=== PATIENT | male | born 1995 | race Caucasian/White ===

== ENCOUNTER 2020-02-15 21:41 | Emergency (ER) | payer SELFPAY ==
[~2020-02-15] VITALS: Ht 165.1 cm; Wt 87.4 kg
[2020-02-15 21:43] VITALS: BP 155/91
[2020-02-15] MEDS ORDERED: HYDR-83 PO (21:52)
[2020-02-15] MEDS ORDERED: PENI500T PO (21:52)
--- NOTE | 2020-02-15 21:52 | ED EENT ---
History of Present Illness General Stated Complaint: TOOTH ACHE Source: patient Exam Limitations: no limitations History of Present Illness Date Seen by Provider: February 15, 2020 Time Seen by Provider: 21:38 Initial Comments The patient is a 24-year-old male presents for evaluation of left upper and lower wisdom tooth pain. He states it started this morning and he spoke with his dentist and has an apartment ointment with them tomorrow morning. He is tearful and states that he is having difficult sleeping. He denies having any pain at all yesterday. He is alert and oriented 4, calm, and appears to be in no distress this time. He denies any other complaints and states that he has no drug allergies. Timing/Duration: abrupt, this morning Severity: moderate Prearrival Treatment: no prearrival treatment Associated Symptoms: tooth pain Allergies and Home Medications Patient Home Medication List Home Medication List Reviewed: Yes Review of Systems Review of Systems Constitutional: no symptoms reported Eyes: No Symptoms Reported Ears: No Symptoms Reported Nose: no symptoms reported Mouth: see HPI Throat: no symptoms reported Respiratory: no symptoms reported Cardiovascular: no symptoms reported Gastrointestinal: no symptoms reported Musculoskeletal: no symptoms reported Skin: no symptoms reported Neurological: No Symptoms Reported Hematologic/Lymphatic: No Symptoms Reported Immunological/Allergic: no symptoms reported All Other Systems Reviewed Negative Unless Noted: Yes Past [id number] Hx Past Med/Social Hx: Reviewed Nursing Past Med/Soc Hx Patient Social History Recent Foreign Travel: No Contact w/Someone Who Travel: No Physical Exam Height, Weight, BMI Height: '" Weight: lbs. oz. kg; BMI Method: General Appearance: WD/WN, no apparent distress Eyes: bilateral eye normal inspection, bilateral eye PERRL, bilateral eye EOMI Nose: normal inspection Mouth/Throat: normal mouth inspection, other (left upper and lower posterior molar/with some teeth with some mild gingival inflammatory changes, no dental abscess seen, no bleeding, no purulence, no trismus) Neck: non-tender, full range of motion, supple Cardiovascular: regular rate, rhythm, no edema, no JVD Respiratory: chest non-tender, normal breath sounds, no respiratory distress Gastrointestinal: normal bowel sounds, non tender, soft, no pulsatile mass Neurologic/Psychiatric: no motor/sensory deficits, alert, normal mood/affect, oriented x 3 Skin: normal color, warm/dry Progress/Results/Core Measures Progress Progress Note : Progress Note @2149 - Patient advised to see his dentist in the morning as previous arranged. He'll be prescribed pain medication and antibiotic. Advised patient to return to the emergency department for new or worsening symptoms. He expresses verbal understanding and agreement with the plan and is stable for discharge. Workup fails to reveal any emergent pathology at this time. Departure Impression Primary Impression: Pain, dental Disposition: HOME, SELF-CARE Condition: Stable Departure-Patient Inst. Decision time for Depature: 21:51 Referrals: POOJA BLACKBURN MD (PCP/Family) Primary Care Physician Patient Instructions: Acute Pain, Adult Add. Discharge Instructions: Take the prescribed medicine instructed. Follow-up with your dentist in the morning. Return to the emergency department for new or worsening symptoms. Scripts Hydrocodone/Acetaminophen (Hydrocodone-Acetamin 5-325 mg) 1 Each Tablet 1 EACH PO Q4H for Pain for 5 Days, #15 TAB Prov: YULIET ARREDONDO DO 02/15/20 Penicillin V Potassium (Penicillin V Potassium) 500 Mg Tablet 500 MG PO Q6H for 10 Days, #40 TAB Prov: YULIET ARREDONDO DO 02/15/20 YULIET ARREDONDO DO February 15, 2020 21:52
[2020-02-15] MEDS ORDERED: HYDROcodone/APAP 5 MG/325 MG (LORTAB) TAB PO ONE (22:00)
== END 2020-02-15 22:01 | disposition home or self-care (01) ==
LOC: ER FS 21:42
DX: K08.89 Other specified disorders of teeth and supporting structures (principal)
CPT/HCPCS: 99283